=== PATIENT | male | born 1960 | race Caucasian/White ===

== ENCOUNTER → 2025-05-06 | Outpatient (CLI) | payer MEDICARE ==
--- NOTE | 2025-05-06 14:10 | NUR ---
MBSS COMPLETED (OUTPATIENT). Deep non-transient penetrations during the swallow with thin liquids via cup sip with no cough response; deep non-transient penetration after the swallow with pureed and pudding thick textures with no cough response; NO ASPIRATIONS. RECOMMENDATIONS: NPO, longwall shearer operator alternate means of nutrition/hydration (e.g., PEG tube placement). Pt may also benefit from GI consult to further evaluate esophagus and UES function as there was moderate residue above UES affecting the swallowing. NOTE: Pt noted with cervical spine instrumentation at C3-C6 and reports having swallowing difficulty after neck surgery. DIAGNOSTIC FINDINGS: Pt presented with mild pharyngeal dysphagia characterized by decreased tongue base retraction; decreased hyo-laryngeal elevation/excursion; decreased velopharyngeal closure; narrowing of pharyngeal space due to cervical spine instrumentation at C3-C6 level; and enlarged cricopharyngeal muscle evidenced by residue on base of tongue, valleculae, pyriform sinuses, nasal cavity, and above UES unable to completely clear with extra dry swallows; multiple swallows; regurgitations observed throughout study in the presence of excessive residue that patient was unable to clear (especially with thicker and dry textures such as in pureed and cookie trial); resulting in deep non-transient penetrations during the swallow with thin liquids via cup sip with no cough response; deep non-transient penetration after the swallow with pureed and pudding thick textures with no cough response; NO ASPIRATIONS. NETWORK SECURITY ANALYST reviewed results and recommendations with patient. NETWORK SECURITY ANALYST educated patient on risks and consequences of aspiration. Speech therapy not warranted at this time as dysphagia is likely related to anatomical issues. All questions answered. Addendum: 05/07/[address] [facility] SELLERS Amended: Links added.
--- NOTE | 2025-05-13 09:48 | HMCIMG ---
MODIFIED BARIUM SWALLOW W CINE REASON: DYSPHAGIA; Feeding difficulties, unspecified FINDINGS: Fluoroscopic assistance was provided to the speech pathologist while performing examination. For findings and dietary recommendations, refer to speech pathologist's report. FLUORO TIME: 3.8 minutes fluoro time IMPRESSION: Modified barium swallow as described.
== END | disposition home or self-care (01) ==
LOC: RAH 13:16
PROVIDERS: ATTEND Internal Medicine Gastroenterology
DX: R13.10 Dysphagia, unspecified (principal); R63.30 Feeding difficulties, unspecified
CPT/HCPCS: 74230; 92611

== ENCOUNTER 2025-06-10 05:48 | Day surgery (SDC) | payer MEDICARE ==
[2025-06-10] VITALS (10 sets, daily range): BP systolic 98–114; BP diastolic 55–71; PULSE 63–76; RESP 14–16; TEMP 97.5–97.8
[~2025-06-10] VITALS: Ht 175.3 cm; Wt 72.6 kg
[~2025-06-10 05:48] MED LIST: ACET-66 PO; CA C1TAB95 PO; HYDR-3421 PO; LISI10TA24 PO; MULT-1203 PO; OMEP40CA21 PO
[2025-06-10] MEDS: 0.9%NACL 1000ML 1,000 ML IV ONE (07:00)
[2025-06-10] MEDS ORDERED: LIDOCAINE HCL 400MG/20ML VIAL ONE (07:07)
--- NOTE | 2025-06-10 09:00 | NUR ---
Full and complete discharge instructions given to Patient and Friend both verbally and in writing. Tolerated fluids and voided in bathroom. PIV removed with catheter tip intact. W/C to POV with Friend to home.
== END 2025-06-10 09:00 | disposition home or self-care (01) ==
LOC: DAH 05:48 → ENDO 05:48
PROVIDERS: ATTEND Internal Medicine Gastroenterology
DX: R13.10 Dysphagia, unspecified (principal); K29.60 Other gastritis without bleeding; K31.7 Polyp of stomach and duodenum; K31.89 Other diseases of stomach and duodenum; I10 Essential (primary) hypertension; F41.9 Anxiety disorder, unspecified; K57.30 Diverticulosis of large intestine without perforation or abscess without bleeding; Z79.899 Other long term (current) drug therapy; Z98.890 Other specified postprocedural states
CPT/HCPCS: 43239; 43248; 43251; J3490; J7030; J2704; A4620; A4215